=== PATIENT | female | born 1975 | race Caucasian/White ===

== ENCOUNTER 2018-05-25 02:45 | Emergency (ER) | payer OTHER ==
[~2018-05-25] VITALS: Ht 172.7 cm; Wt 93.0 kg
[2018-05-25 02:50] VITALS: BP_SYST 138
[2018-05-25 03:50] VITALS: BP_SYST 129
== END 2018-05-25 03:50 | disposition home or self-care (01) ==
LOC: SED 02:45
DX: H00.025 Hordeolum internum left lower eyelid (principal); T63.441A Toxic effect of venom of bees, accidental (unintentional), initial encounter; F17.200 Nicotine dependence, unspecified, uncomplicated; R03.0 Elevated blood-pressure reading, without diagnosis of hypertension; Z91.041 Radiographic dye allergy status; Z91.013 Allergy to seafood; Z71.6 Tobacco abuse counseling; Y92.89 Other specified places as the place of occurrence of the external cause
CPT/HCPCS: 99283

== ENCOUNTER 2018-10-04 23:48 | Emergency (ER) | payer OTHER ==
[~2018-10-04] VITALS: Ht 172.7 cm; Wt 97.5 kg
[2018-10-05 00:01] VITALS: BP_SYST 135
[2018-10-05] MEDS ORDERED: CLINDAMYCIN HCL 150 MG CAPSULE PO ONE (00:30)
[2018-10-05 00:38] VITALS: BP_SYST 135
== END 2018-10-05 00:38 | disposition home or self-care (01) ==
LOC: SED 23:48
DX: K08.89 Other specified disorders of teeth and supporting structures (principal); I10 Essential (primary) hypertension; F17.200 Nicotine dependence, unspecified, uncomplicated; Z91.041 Radiographic dye allergy status; Z91.013 Allergy to seafood; Z88.3 Allergy status to other anti-infective agents; Z91.048 Other nonmedicinal substance allergy status
CPT/HCPCS: 99283